=== PATIENT | female | born 1945 | race African-American/Black ===

== ENCOUNTER 2018-04-20 13:39 | Emergency (ER) | payer OTHER ==
[2018-04-20] MEDS ORDERED: MORPHINE 4 MG/ML SYR ONE (14:36)
[2018-04-20] MEDS ORDERED: ONDANSETRON 4 MG (ODT) TAB ONE (14:36)
--- NOTE | 2018-04-20 14:52 | EDPHYS ---
Physician Documentation [facility] Name: Ida Rollins Age: 72 yrs Sex: Female : 1945 Arrival Date: 04/20/2018 Time: 13:42 Bed 15 Private MD: ED Physician Silvestre Echevarria HPI: 04/20 14:08 This 72 yrs old Black Female presents to ER via Ambulatory with complaints of Arm Pain, jmm Back Pain. 14:08 The patient or guardian complains of pain, that is acute. Onset: The symptoms/episode jmm began/occurred gradually, 2 week(s) ago. This is a 72 year old female that presents to the ED with complaints of right upper back pain radiating to her right arm. Patient denies chest pain , patient denies shortness of breath. Patient has been evaluated by her pcp and prescribed steroids, muscle relaxers, and pain medication with little relief. . Historical: - Allergies: 13:56 No Known Allergies; ss - Home Meds: 13:59 aspirin 81 mg Oral TbEC 1 tab once daily [Active]; doxazosin 2 mg Oral tab 1 tab Every tw2 other day [Active]; hydrochlorothiazide 12.5 mg Oral cap 1 cap once daily [Active]; carvedilol 25 mg Oral tab 1 tab 2 times per day [Active]; metformin 500 mg Oral tab 2 tabs 2 times per day [Active]; metoprolol tartrate 50 mg Oral tab 1 tab 2 times per day [Active]; pioglitazone 15 mg Oral tab 1 tab once daily [Active]; simvastatin 40 mg Oral tab 1 tab once daily [Active]; - PMHx: 13:56 Diabetes - NIDDM; Hypertension; ss - PSHx: 13:56 Tubal ligation; ss - Immunization history:: Adult Immunizations up to date. - Social history:: Smoking status: Patient/guardian denies using tobacco. - Ebola Screening: : Patient denies exposure to infectious person Patient denies travel to an Ebola-affected area in the 21 days before illness onset. ROS: 14:08 Constitutional: Negative for fever, chills, and weight loss, Cardiovascular: Negative jmm for chest pain, palpitations, and edema, Respiratory: Negative for shortness of breath, cough, wheezing, and pleuritic chest pain. 14:08 MS/extremity: Positive for pain. 14:08 All other systems are negative. Exam: 14:08 Head/Face: atraumatic. Eyes: EOMI, no conjunctival erythema appreciated ENT: Moist [facility] Mucus Membranes Neck: Trachea midline, Supple Chest/axilla: Normal chest wall appearance and motion. Cardiovascular: Regular rate and rhythm. No edema appreciated Respiratory: Normal respirations, no respiratory distress appreciated 14:08 Constitutional: The patient appears in no acute distress, alert, awake. 14:08 Neck: FROM appreciated to the cervical spine. 14:08 Back: pain is elicited on palpation of the right thoracic region. 14:08 Musculoskeletal/extremity: full occupational health coordinator strength is appreciated, normal finger jerk. 14:08 Skin: Appearance: Color: normal in color. 14:08 Neuro: Orientation: is normal, Mentation: is normal, Memory: is normal. 14:08 Psych: Behavior/mood is pleasant, cooperative. Vital Signs: 13:56 BP 139 / 72; Pulse 84; Resp 16; Temp 98.0(O); Pulse Ox 100% on R/A; Weight 63.5 kg; ss Height 5 ft. 3 in. (160.02 cm); Pain 8/10; 14:57 BP 123 / 85; Pulse 75; Resp 17; Pulse Ox 100% on R/A; tw2 13:56 Body Mass Index 24.80 (63.50 kg, 160.02 cm) ss MDM: 14:08 Patient medically screened. [facility] 14:49 Data reviewed: vital signs, nurses notes. Counseling: I had a detailed discussion with [facility] the patient and/or guardian regarding: the historical points, exam findings, and any diagnostic results supporting the discharge/admit diagnosis, the need for outpatient follow up, to return to the emergency department if symptoms worsen or persist or if there are any questions or concerns that arise at home. ED course: Symptoms appear consistent with neuropathic pain. I do not suspect thoracic dissection. patient has no chest pain or shortness of breath. patient is advised to follow up with pain management or spine. patient is otherwise given strict return precautions. patient understood and agrees with the plan of care. . Administered Medications: 14:28 Drug: Zofran 4 mg Route: PO; tw2 15:02 Follow up: Response: No adverse reaction tw2 14:38 Drug: morphine 4 mg Route: IM; Site: left deltoid; tw2 15:01 Follow up: Response: No adverse reaction; Pain is decreased tw2 Disposition: 04/21 09:34 Co-signature as Attending Physician, Silvestre Echevarria MD I agree with the assessment and [facility] plan of care. Disposition: 04/20/18 14:51 Discharged to Home. Impression: Radiculopathy, cervicothoracic region. - Condition is Stable. - Discharge Instructions: Cervical Radiculopathy, Neuropathic Pain. - Prescriptions for orphenadrine citrate 100 mg Oral Tablet Sustained Release - take 1 tablet by ORAL route 2 times per day As needed; 20 tablet. - Medication Reconciliation Form, Thank You Letter, Antibiotic Education, Prescription Opioid Use form. - Follow up: Private Physician; When: 2 - 3 days; Reason: Recheck today's complaints, Continuance of care, Re-evaluation by your physician. Signatures: Silvestre Echevarria MD MD cha Mickail, Joel, PA PA jmm Smirch, Shelby, RN RN ss Esther Mora RN RN tw2 Corrections: (The following items were deleted from the chart) 04/20 15:03 14:51 04/20/2018 14:51 Discharged to Home. Impression: Radiculopathy, cervicothoracic tw2 region. Condition is Stable. Forms are Medication Reconciliation Form, Thank You Letter, Antibiotic Education, Prescription Opioid Use. Follow up: Private Physician; When: 2 - 3 days; Reason: Recheck today's complaints, Continuance of care, Re-evaluation by your physician. amanda
--- NOTE | 2018-04-20 14:52 | ER ---
Nurse's Notes [facility] Name: Ida Rollins Age: 72 yrs Sex: Female : 1945 Arrival Date: 04/20/2018 Time: 13:42 Bed 15 Private MD: Diagnosis: Radiculopathy, cervicothoracic region Presentation: 04/20 13:53 Presenting complaint: Patient states: R arm pain that radiates towards R scapula area ss since April 08. No known injury. Pt reports she was seen by her PCP and the [place] she was prescribed was helping "a little", but now she is out. Transition of care: patient was not received from another setting of care. Onset of symptoms was April 08, 2018. Risk Assessment: Do you want to hurt yourself or someone else? Patient reports no desire to harm self or others. Initial Sepsis Screen: Does the patient meet any 2 criteria? No. Patient's initial sepsis screen is negative. Does the patient have a suspected source of infection? No. Patient's initial sepsis screen is negative. Care prior to arrival: None. 13:53 Method Of Arrival: Ambulatory ss 13:53 Acuity: VENANCIO 3 ss Historical: - Allergies: 13:56 No Known Allergies; ss - Home Meds: 13:59 aspirin 81 mg Oral TbEC 1 tab once daily [Active]; doxazosin 2 mg Oral tab 1 tab Every tw2 other day [Active]; hydrochlorothiazide 12.5 mg Oral cap 1 cap once daily [Active]; carvedilol 25 mg Oral tab 1 tab 2 times per day [Active]; metformin 500 mg Oral tab 2 tabs 2 times per day [Active]; metoprolol tartrate 50 mg Oral tab 1 tab 2 times per day [Active]; pioglitazone 15 mg Oral tab 1 tab once daily [Active]; simvastatin 40 mg Oral tab 1 tab once daily [Active]; - PMHx: 13:56 Diabetes - NIDDM; Hypertension; ss - PSHx: 13:56 Tubal ligation; ss - Immunization history:: Adult Immunizations up to date. - Social history:: Smoking status: Patient/guardian denies using tobacco. - Ebola Screening: : Patient denies exposure to infectious person Patient denies travel to an Ebola-affected area in the 21 days before illness onset. Screenin:58 Abuse screen: Denies threats or abuse. Nutritional screening: No deficits noted. tw2 Tuberculosis screening: No symptoms or risk factors identified. Fall Risk None identified. Assessment: 14:00 General: Appears in no apparent distress. Behavior is calm, cooperative, appropriate tw2 for age. Pain: Complains of pain in right scapular area, right subscapular area and right arm. Neuro: Level of Consciousness is awake, alert, obeys commands, Oriented to person, place, time, situation. Cardiovascular: Capillary refill < 3 seconds Patient's skin is warm and dry. Respiratory: Airway is patent Respiratory effort is even, unlabored, Respiratory pattern is regular, symmetrical. GI: No signs and/or symptoms were reported involving the gastrointestinal system. : No signs and/or symptoms were reported regarding the genitourinary system. EENT: No signs and/or symptoms were reported regarding the EENT system. Derm: No signs and/or symptoms reported regarding the dermatologic system. Musculoskeletal: Circulation, motion, and sensation intact. Range of motion: limited in right shoulder. 14:58 Reassessment: Patient appears in no apparent distress at this time. No changes from tw2 previously documented assessment. Patient and/or family updated on plan of care and expected duration. Pain level reassessed. Patient is alert, oriented x 3, equal unlabored respirations, skin warm/dry/pink. Patient states feeling better. 15:02 Reassessment: Patient appears in no apparent distress at this time. No changes from tw2 previously documented assessment. Patient and/or family updated on plan of care and expected duration. Pain level reassessed. Patient is alert, oriented x 3, equal unlabored respirations, skin warm/dry/pink. Vital Signs: 13:56 BP 139 / 72; Pulse 84; Resp 16; Temp 98.0(O); Pulse Ox 100% on R/A; Weight 63.5 kg; ss Height 5 ft. 3 in. (160.02 cm); Pain 8/10; 14:57 BP 123 / 85; Pulse 75; Resp 17; Pulse Ox 100% on R/A; tw2 13:56 Body Mass Index 24.80 (63.50 kg, 160.02 cm) ED Course: 13:42 Patient arrived in ED. mr 13:47 Esther Mora, RN is Primary Nurse. tw2 13:56 Triage completed. ss 13:56 Arm band placed on right wrist. ss 13:58 Bed in low position. Call light in reach. Pulse ox on. NIBP on. tw2 14:03 Wilfred Garcia PA is PHCP. amanda 14:03 Silvestre Echevarria MD is Attending Physician. jm 15:02 No provider procedures requiring assistance completed. Patient did not have IV access tw2 during this emergency room visit. Administered Medications: 14:28 Drug: Zofran 4 mg Route: PO; tw2 15:02 Follow up: Response: No adverse reaction tw2 14:38 Drug: morphine 4 mg Route: IM; Site: left deltoid; tw2 15:01 Follow up: Response: No adverse reaction; Pain is decreased tw2 Outcome: 14:51 Discharge ordered by . [facility] 15:02 Discharged to home ambulatory, with family. tw2 15:02 Condition: stable 15:02 Discharge instructions given to patient, Instructed on discharge instructions, follow up and referral plans. no driving heavy equipment, Demonstrated understanding of instructions, follow-up care, medications, Prescriptions given X 1. 15:03 Patient left the ED. tw2 Signatures: Wilfred Garcia PA PA jmm Rivera, Mary Lidia Medina, RN RN Esther Venegas RN RN tw2
[2018-04-20 15:08] VITALS: TEMP 98; O2SAT 100
[2018-04-20 15:10] VITALS: BP 123/85
== END 2018-04-20 15:03 | disposition home or self-care (01) ==
LOC: ER 13:39
DX: M54.13 Radiculopathy, cervicothoracic region (principal); I10 Essential (primary) hypertension; E11.9 Type 2 diabetes mellitus without complications; Z79.82 Long term (current) use of aspirin
CPT/HCPCS: 96372; 99283